=== PATIENT | female | born 1960 | race Two or more races ===

== ENCOUNTER 2019-12-13 07:00 | Inpatient (IN) | payer OTHER ==
[~2019-12-13] VITALS: Ht 157.5 cm; Wt 59.0 kg
[~2019-12-13 07:00] MED LIST: AMBIEN10 MG PO; CIPRO750 MG PO; Colace 100MG PO; NEURONTIN PO; PERCOCET 5/3251 TAB PO
[2019-12-13] MEDS ORDERED: ATIVAN1 M1 PO (08:36)
[2019-12-13] MEDS ORDERED: NEURONTIN300 MG PO (08:37)
[2019-12-13] MEDS ORDERED: ZETIA10 MG PO (08:37)
[2019-12-13] MEDS ORDERED: ZANAFLEX4 M1 PO (08:38)
[2019-12-13] MEDS ORDERED: TOPROL XL50 M1 PO (08:38)
[2019-12-13] MEDS ORDERED: SERTRALINE HCL100 MG PO (08:38)
[2019-12-13] MEDS ORDERED: ATORVASTATIN CA80 MG PO (08:39)
[2019-12-13] MEDS ORDERED: ALTACE2.5 MG PO (08:39)
[2019-12-13] MEDS ORDERED: FIORINAL 50-321 EACH PO (08:41)
[2019-12-21] MEDS ORDERED: DIAZEPAM10 MG PO (15:51)
[2019-12-21] MEDS ORDERED: COLACE100 MG PO (15:51)
[2019-12-21] MEDS ORDERED: PERCOCET 5-3251 EACH PO (15:51)
== END 2019-12-22 12:44 | disposition home or self-care (01) | DRG 454 ==
LOC: SURH 12-21 05:59 → O/R 12-21 05:59 → SURH 12-21 07:00
PROVIDERS: ADMIT Orthopaedic Surgery Orthopaedic Surgery of the Spine
PROC: 0RG2071 Fusion of 2 or more Cervical Vertebral Joints with Autologous Tissue Substitute, Posterior Approach, Posterior Column, Open Approach (ICD-10-PCS; 2019-12-21)
PROC: 0RT30ZZ Resection of Cervical Vertebral Disc, Open Approach (ICD-10-PCS; 2019-12-21)
PROC: 07DS3ZZ Extraction of Vertebral Bone Marrow, Percutaneous Approach (ICD-10-PCS; 2019-12-21)
PROC: 0RG20A0 Fusion of 2 or more Cervical Vertebral Joints with Interbody Fusion Device, Anterior Approach, Anterior Column, Open Approach (ICD-10-PCS; principal; 2019-12-21 16:00)
DX: M50.021 Cervical disc disorder at C4-C5 level with myelopathy (principal); M47.12 Other spondylosis with myelopathy, cervical region; I10 Essential (primary) hypertension